=== PATIENT | male | born 1955 | race Caucasian/White ===

== ENCOUNTER 2016-09-26 20:41 | Emergency (ER) | payer MEDICAID ==
[~2016-09-26] VITALS: Ht 170.2 cm; Wt 74.7 kg
[~2016-09-26 20:41] MED LIST: GABA300C10 PO; METH10TA4 PO; QUET100T4 PO; SERT25TA PO
[2016-09-26] MEDS ORDERED: OMNIPAQUE 350 MG/ML, 100ML BOTTLE ONE (21:27)
[2016-09-26] MEDS ORDERED: ONDANSETRON 2MG/ML, 2ML IVPush ONE (21:30)
[2016-09-26] MEDS ORDERED: MORPHINE SULFATE 4 MG/ML, 1ML IVPush PRN (21:30)
[2016-09-26 21:52] LABS: HEMOGLOBIN 14.5 g/dL (13.7-18.0)
[2016-09-26] MEDS ORDERED: MORPHINE SULFATE 4 MG/ML, 1ML ONE (22:18)
[2016-09-26] MEDS ORDERED: ONDANSETRON 2MG/ML, 2ML ONE (22:18)
[2016-09-27] MEDS ORDERED: KETOROLAC 30 MG/1 ML IVPush ONE
[2016-09-27] MEDS ORDERED: KETOROLAC 30 MG/1 ML ONE (00:12)
[2016-09-27 00:23] VITALS: BP 119/78
== END 2016-09-27 00:25 | disposition home or self-care (01) ==
LOC: ED 09-27 00:24
DX: S20.219A Contusion of unspecified front wall of thorax, initial encounter (principal); Y09 Assault by unspecified means; Y93.89 Activity, other specified; Y92.89 Other specified places as the place of occurrence of the external cause; Y99.9 Unspecified external cause status
CPT/HCPCS: 36415; 71101; 74177; 85025; 93005; 96374; 96375; 99285; J1885; J2405; Q9967

== ENCOUNTER 2017-06-21 13:18 | Inpatient (IN) | payer MEDICAID ==
[~2017-06-21] VITALS: Ht 170.2 cm; Wt 77.2 kg
[2017-06-21] MEDS ORDERED: AMPICILLIN/SULBACTAM 3 GM in SODIUM CHLORIDE 0.9% 100 ML IV ONE (15:17)
[2017-06-21] MEDS ORDERED: HYDROmorphone 1 MG/ML, 1ML IVPush PRN (15:30)
[2017-06-21] MEDS ORDERED: SODIUM CHLORIDE 0.9% 1,000ML IVBOLUS ONE (15:30)
[2017-06-21] MEDS ORDERED: HYDROmorphone 2 MG/ML, 1ML ONE (15:42)
[2017-06-21 15:50] LABS: BASOPHILS # (AUTO) 0.02 x10^3/uL (0-0.1); BASOPHILS % (AUTO) 0 % (0-1); EOSINOPHILS # (AUTO) 0.03 x10^3/uL (0-0.4); EOSINOPHILS % (AUTO) 1 % (1-7); LYMPHOCYTES # (AUTO) 1.09 x10^3/uL (1-3.4); LYMPHOCYTES % (AUTO) 22 % (22-44); MD NO; MEAN CORPUSCULAR HEMOGLOBIN 31.6 pg (27.5-34.5); MEAN CORPUSCULAR HGB CONC 33.2 g/dL (33.2-36.2); MEAN CORPUSCULAR VOLUME 95.1 fL (81-97); MONOCYTES # (AUTO) 0.43 x10^3/uL (0.2-0.8); MONOCYTES % (AUTO) 8 % (2-9); NEUTROPHILS # (AUTO) 3.53 x10^3/uL (1.8-6.8); NEUTROPHILS % (AUTO) 69 % (42-75); PLATELET COUNT 180 x10^3/uL (130-400); RED BLOOD COUNT 4.33 x10^6/uL (4.38-5.82); RED CELL DISTRIBUTION WIDTH 14.4 % (9.4-14.8)
[2017-06-21 15:51] LABS: ALBUMIN 3.3 g/dL (3.4-5.0); ANION GAP 6 mmol/L (5-15); CALCIUM 8.2 mg/dL (8.5-10.1); CHLORIDE 105 mmol/L (98-107); CREATININE 0.97 mg/dL (0.7-1.3)
[2017-06-21] MEDS ORDERED: NS + 20MEQ KCL 1,000 ML IV SCH (17:10)
[2017-06-21 17:24] LABS: HCT (SEDRATE) 41.2 % (39.2-51.8)
[2017-06-21] MEDS ORDERED: ONDANSETRON 2MG/ML, 2ML IVPush PRN (17:30)
[2017-06-21] MEDS ORDERED: LABETALOL 5MG/ML, 20ML IVPush PRN (17:30)
[2017-06-21] MEDS ORDERED: VANCOMYCIN PER PHARMACY MC PRN (17:30)
[2017-06-21 18:13] LABS: INTERNATIONAL NORMALIZED RATIO 1.11 (0.93-1.1); PROTHROMBIN TIME 11.4 Seconds (9.6-11.5)
[2017-06-21 18:14] VITALS: BP 110/73
[2017-06-21] MEDS ORDERED: PHARMACOKINETIC CONSULTATION MC ONE (18:30)
[2017-06-21] MEDS ORDERED: VANCOMYCIN 1,600 MG in SODIUM CHLORIDE 0.9% 250 ML IV SCH (18:30)
[2017-06-21] MEDS ORDERED: PHARMACOKINETIC MONITORING MC PRN (18:30)
[2017-06-21 19:46] VITALS: BP 112/73
[2017-06-21] MEDS: QUETIAPINE 100MG TABLET PO SCH (20:52)
[2017-06-21] MEDS: KETOROLAC 30 MG/1 ML IVPush PRN (21:39)
[2017-06-21] MEDS: AMPICILLIN/SULBACTAM 3 GM in SODIUM CHLORIDE 0.9% 100 ML IV SCH (23:39)
[2017-06-22 00:30] VITALS: BP 114/69
[2017-06-22] MEDS: KETOROLAC 30 MG/1 ML IVPush PRN ×2 (03:33→20:23)
[2017-06-22 05:19] LABS: BASOPHILS # (AUTO) 0.02 x10^3/uL (0-0.1); BASOPHILS % (AUTO) 1 % (0-1); EOSINOPHILS # (AUTO) 0.05 x10^3/uL (0-0.4); EOSINOPHILS % (AUTO) 1 % (1-7); LYMPHOCYTES # (AUTO) 0.71 x10^3/uL (1-3.4); LYMPHOCYTES % (AUTO) 18 % (22-44); MD NO; MEAN CORPUSCULAR HEMOGLOBIN 32.4 pg (27.5-34.5); MEAN CORPUSCULAR VOLUME 95.2 fL (81-97); MEAN PLATELET VOLUME 7.8 fL (7.4-10.4); MONOCYTES % (AUTO) 8 % (2-9); NEUTROPHILS # (AUTO) 2.78 x10^3/uL (1.8-6.8); NEUTROPHILS % (AUTO) 72 % (42-75); PLATELET COUNT 159 x10^3/uL (130-400); RED BLOOD COUNT 3.92 x10^6/uL (4.38-5.82); RED CELL DISTRIBUTION WIDTH 14.6 % (9.4-14.8)
[2017-06-22 05:25] LABS: CHLORIDE 111 mmol/L (98-107)
[2017-06-22 05:40] LABS: ALANINE AMINOTRANSFERASE 17 U/L (12-78); ALBUMIN 2.6 g/dL (3.4-5.0); ALKALINE PHOSPHATASE 69 U/L (45-117); ANION GAP 6 mmol/L (5-15); BILIRUBIN,TOTAL 0.4 mg/dL (0.2-1.0); CALCIUM 7.8 mg/dL (8.5-10.1); CREATININE 0.78 mg/dL (0.7-1.3); TOTAL PROTEIN 5.8 g/dL (6.4-8.2)
[2017-06-22] MEDS: AMPICILLIN/SULBACTAM 3 GM in SODIUM CHLORIDE 0.9% 100 ML IV SCH ×4 (05:41→23:42)
[2017-06-22 06:35] VITALS: BP 146/78
[2017-06-22] MEDS ORDERED: METHYLPHENIDATE 10 MG TABLET ONE (07:34)
[2017-06-22] MEDS ORDERED: GADOBUTROL 10 MMOL/10 ML VIAL ONE (08:23)
[2017-06-22] MEDS: ACETAMINOPHEN 325 MG TABLET PO PRN ×2 (09:44→17:51)
[2017-06-22] MEDS: SERTRALINE 50MG TABLET PO SCH (09:44)
[2017-06-22] MEDS: GABAPENTIN 300 MG CAPSULE PO SCH (09:44)
[2017-06-22] MEDS: METHYLPHENIDATE 10 MG TABLET PO SCH (09:44)
[2017-06-22 10:26] LABS: RAPID INFLUENZA A POSITIVE (Negative); RAPID INFLUENZA B Negative (Negative)
[2017-06-22] MEDS: NS + 20MEQ KCL 1,000 ML IV SCH ×2 (10:49→23:41)
[2017-06-22] MEDS: OSELTAMIVIR 75 MG CAPSULE PO SCH ×2 (11:14→20:23)
[2017-06-22] MEDS: VANCOMYCIN 1,500 MG in SODIUM CHLORIDE 0.9% 250 ML IV SCH (12:46)
[2017-06-22 12:53] VITALS: BP 106/64
[2017-06-22 19:05] VITALS: BP 120/72
[2017-06-22] MEDS: QUETIAPINE 100MG TABLET PO SCH (20:22)
[2017-06-23] MEDS: VANCOMYCIN 1,500 MG in SODIUM CHLORIDE 0.9% 250 ML IV SCH (00:42)
[2017-06-23 04:21] VITALS: BP 139/78
[2017-06-23] MEDS: AMPICILLIN/SULBACTAM 3 GM in SODIUM CHLORIDE 0.9% 100 ML IV SCH (05:39)
[2017-06-23 06:41] VITALS: BP 136/81
[2017-06-23 07:32] LABS: ANION GAP 4 mmol/L (5-15); CALCIUM 7.6 mg/dL (8.5-10.1); CHLORIDE 112 mmol/L (98-107); CREATININE 0.83 mg/dL (0.7-1.3)
[2017-06-23] MEDS: GABAPENTIN 300 MG CAPSULE PO SCH (08:12)
[2017-06-23] MEDS: METHYLPHENIDATE 10 MG TABLET PO SCH (08:12)
[2017-06-23] MEDS: SERTRALINE 50MG TABLET PO SCH (08:12)
[2017-06-23] MEDS: OSELTAMIVIR 75 MG CAPSULE PO SCH (08:12)
== END 2017-06-23 10:05 | disposition left against medical advice (07) | DRG 194 ==
LOC: ED 16:32 → EDIP 16:45 → 3NW 17:50
PROVIDERS: ADMIT Family Medicine; ATTEND Family Medicine
DX: J10.1 Influenza due to other identified influenza virus with other respiratory manifestations (principal); E44.0 Moderate protein-calorie malnutrition; I11.9 Hypertensive heart disease without heart failure; L02.511 Cutaneous abscess of right hand; F17.210 Nicotine dependence, cigarettes, uncomplicated; L03.011 Cellulitis of right finger; M65.9 Synovitis and tenosynovitis, unspecified; Z66 Do not resuscitate; Z85.028 Personal history of other malignant neoplasm of stomach; R73.9 Hyperglycemia, unspecified; Z68.26 Body mass index [BMI] 26.0-26.9, adult; Z53.21 Procedure and treatment not carried out due to patient leaving prior to being seen by health care provider
CPT/HCPCS: 36415; 80048; 80053; 82040; 83605; 85025; 85610; 85651; 86141; 87040; 87400; 93005; 96365; 96366; 96375; A9585; J0295; J1170; J1885; J3370; J3480; J7030; J7050

== ENCOUNTER 2018-11-11 15:16 | Emergency (ER) | payer MEDICAID ==
[~2018-11-11] VITALS: Ht 170.2 cm; Wt 89.0 kg
[2018-11-11 15:32] VITALS: BP 147/79
--- NOTE | 2018-11-11 15:36 | NUR ---
PT. ARRIVES BY [facility] WITH C/O MGLF WHILE AT WORK. PT. STATES HE HIT HIS HEAD AND SHOULDER WITH THE FALL WELL DID LOSE CONSCIENCIOUSNESS. PT. HAS AN [facility] FROM [facility] ARTERIAL LINE. PT.'S IV WAS DCD, CATH TIP INTACT. PRESSURE HELD WITH HEMOSTASIS ACHIEVED. PT.'S PUPILS ARE ABIDA. NEUROASSESSMENT IS INTACT. PT. HAS 2 SMALL ABRASIONS TO HIS LEFT CHEEK AND LEFT EYE. PT. DENIES NECK OR BACK PAIN BUT DOES C/O CALDWELL PAIN. PT. HAS THE SIDERAILS UP X 2 AND WAS TAKEN TO RADIOLOGY.
[2018-11-11] MEDS ORDERED: CEFAZOLIN 1,000 MG ONE (16:53)
[2018-11-11] MEDS ORDERED: CEFAZOLIN PMX 1GM/50ML 50 ML IV ONE ×2 (17:00→18:00)
[2018-11-11] MEDS ORDERED: OXYcodone/APAP 5/325MG TABLET ONE (17:03)
--- NOTE | 2018-11-11 17:06 | NUR ---
Medicated per eMAR. No other needs.
[2018-11-11] MEDS ORDERED: CEFAZOLIN 1,000 MG IM ONE (17:30)
[2018-11-11] MEDS ORDERED: OXYcodone/APAP 5/325MG TABLET PO ONE (17:30)
--- NOTE | 2018-11-11 17:37 | NUR ---
Patient/Caregiver given discharge instructions and they have confirmed that they understand the instructions. Patient ambulatory with steady gait.
== END 2018-11-11 17:38 ==
LOC: ED 17:32
DX: S06.0X0A Concussion without loss of consciousness, initial encounter (principal); S02.32XA Fracture of orbital floor, left side, initial encounter for closed fracture; S02.40FA Zygomatic fracture, left side, initial encounter for closed fracture; S02.40DA Maxillary fracture, left side, initial encounter for closed fracture; R41.3 Other amnesia; M25.512 Pain in left shoulder; W18.30XA Fall on same level, unspecified, initial encounter; Y93.89 Activity, other specified; Y92.69 Other specified industrial and construction area as the place of occurrence of the external cause; Y99.0 Civilian activity done for income or pay
CPT/HCPCS: 70450; 70486; 72125; 73030; 96372; 99284; J0690

== ENCOUNTER 2018-11-24 10:24 | Day surgery (SDC) | payer OTHER ==
[~2018-11-24] VITALS: Ht 170.2 cm; Wt 72.5 kg
[2018-11-24] MEDS ORDERED: LACTATED RINGERS 1,000 ML IV SCH (10:59)
[2018-11-24] MEDS ORDERED: TRAZ150T62 PO (11:17)
[2018-11-24] MEDS ORDERED: SERT100T32 PO (11:17)
[2018-11-24 11:33] VITALS: BP 110/66
[2018-11-24] MEDS ORDERED: PRAZ1CAP PO (11:33)
[2018-11-24] MEDS ORDERED: BALANCED SALT OPHTH IRRIG SOLN 18ML ONE (12:20)
[2018-11-24] MEDS ORDERED: LIDOCAINE 1%-EPI 1:100K, 50ML ONE (12:20)
[2018-11-24] MEDS ORDERED: MUPIROCIN OINT 2%, 22GM ONE (12:20)
[2018-11-24] MEDS ORDERED: FENTANYL PF 250 MCG/5ML ONE (12:34)
[2018-11-24] MEDS ORDERED: MIDAZOLAM 1 MG/ML, 2ML ONE (12:34)
[2018-11-24] MEDS ORDERED: PROPOFOL 50 ML ONE (12:44)
[2018-11-24] MEDS ORDERED: CLINDAMYCIN 150 MG/ML, 6ML ONE (12:58)
[2018-11-24] MEDS ORDERED: PROPOFOL 10 MG/ML, 20ML ONE (13:47)
[2018-11-24] MEDS ORDERED: ONDANSETRON 2MG/ML, 2ML ONE (13:47)
[2018-11-24] MEDS ORDERED: GLYCOPYRROLATE 0.2MG/1ML, 5ML ONE (13:47)
[2018-11-24] MEDS ORDERED: ROCURONIUM 10MG/ML,5ML ONE (13:47)
[2018-11-24] MEDS ORDERED: DEXAMETHASONE 4 MG/ML, 1ML ONE (13:47)
[2018-11-24] MEDS ORDERED: NEOSTIGMINE 1 MG/ML, 10ML ONE (13:47)
[2018-11-24] MEDS ORDERED: SUCCINYLCHOLINE 20 MG/ML, 10ML ONE (13:47)
[2018-11-24] MEDS ORDERED: CEFAZOLIN 1,000 MG ONE (13:47)
[2018-11-24] MEDS ORDERED: LIDOCAINE-MPF 2% ,5ML ONE (13:48)
[2018-11-24] MEDS ORDERED: ACETAMINOPHEN 325 MG TABLET PO PRN (14:00)
[2018-11-24] MEDS ORDERED: ALBUTEROL/IPRATROPIUM 2.5MG/0.5MG, 3 ML NPPB PRN (14:00)
[2018-11-24] MEDS ORDERED: FENTANYL PF 100 MCG/2ML IV PRN (14:00)
[2018-11-24] MEDS ORDERED: ONDANSETRON 2MG/ML, 2ML IV PRN (14:00)
[2018-11-24] MEDS ORDERED: LORazepam 2 MG/ML, 1ML IVPush PRN (14:00)
[2018-11-24] MEDS ORDERED: ONDANSETRON ODT 8 MG PO PRN (14:00)
[2018-11-24] MEDS ORDERED: PROMETHAZINE 25 MG/ML, 1ML IV PRN (14:00)
[2018-11-24] MEDS ORDERED: DIAZEPAM 5 MG/ML, 2ML IVPush PRN (14:00)
[2018-11-24] MEDS ORDERED: PROMETHAZINE 25 MG SUPP PR PRN (14:00)
[2018-11-24] MEDS ORDERED: MEPERIDINE/PF 25MG/0.5ML IVPush PRN (14:00)
[2018-11-24] MEDS ORDERED: OXYcodone 5 MG/5 ML ORAL.SOL UDC PO PRN (14:00)
[2018-11-24] MEDS ORDERED: HYDROmorphone 2 MG/ML, 1ML IVPush PRN ×2 (14:00→19:00)
[2018-11-24] MEDS ORDERED: OXYcodone 5 MG/5 ML ORAL.SOL UDC ONE (14:23)
[2018-11-24] MEDS ORDERED: FENTANYL PF 100 MCG/2ML ONE (14:23)
[2018-11-24] MEDS ORDERED: OXYcodone IR 5MG TABLET ONE (15:59)
[2018-11-24] MEDS ORDERED: HYDROmorphone 2 MG/ML, 1ML ONE (18:34)
[2018-11-24] MEDS ORDERED: HYDROmorphone 1 MG/ML, 1ML INJ IV ONE (19:00)
[2018-11-25] MEDS ORDERED: OXYcodone IR 5MG TABLET PO PRN (12:00)
== END 2018-11-24 19:15 | disposition home or self-care (01) ==
LOC: OUT 10:24
PROVIDERS: ATTEND Otolaryngology Facial Plastic Surgery
DX: S02.40BA Malar fracture, left side, initial encounter for closed fracture (principal); F43.10 Post-traumatic stress disorder, unspecified; J44.9 Chronic obstructive pulmonary disease, unspecified; Z85.028 Personal history of other malignant neoplasm of stomach; Z86.19 Personal history of other infectious and parasitic diseases; W01.0XXA Fall on same level from slipping, tripping and stumbling without subsequent striking against object, initial encounter; Y93.89 Activity, other specified; Y92.89 Other specified places as the place of occurrence of the external cause; Y99.8 Other external cause status
CPT/HCPCS: 21365; 93005; C1713; J0330; J0690; J1100; J1170; J2250; J2405; J2704; J2710; J3010; J7120

== ENCOUNTER 2018-11-25 12:11 | Emergency (ER) | payer OTHER ==
[~2018-11-25] VITALS: Ht 170.2 cm; Wt 76.8 kg
[~2018-11-25 12:11] MED LIST changes: +PRAZ1CAP PO; +SERT100T32 PO; +TRAZ150T62 PO
[2018-11-25 12:16] VITALS: BP 144/73
[2018-11-25] MEDS ORDERED: METHOCARBAMOL 750 MG TABLET PO ONE (13:30)
[2018-11-25] MEDS ORDERED: KETOROLAC 30 MG/1 ML IM ONE (13:30)
[2018-11-25] MEDS ORDERED: KETOROLAC 30 MG/1 ML ONE (13:40)
[2018-11-25] MEDS ORDERED: METHOCARBAMOL 750 MG TABLET ONE (13:40)
== END 2018-11-25 15:06 | disposition home or self-care (01) ==
LOC: ED 15:00
DX: M62.838 Other muscle spasm (principal); Z85.028 Personal history of other malignant neoplasm of stomach
CPT/HCPCS: 73030; 96372; 99283; J1885

== ENCOUNTER 2018-12-01 13:45 | Emergency (ER) | payer OTHER ==
[~2018-12-01] VITALS: Ht 170.2 cm; Wt 74.9 kg
[2018-12-01 13:54] VITALS: BP 164/91
--- NOTE | 2018-12-01 15:00 | NUR ---
PT REPORTS THAT HE WAS SENT HER BY DR. LIZARRAGA FOR EVALUATION OF INCFECTION. PT REPORTS HE FEELS FINE BUT HAS NOTED SOME SWELLING.
--- NOTE | 2018-12-01 15:21 | NUR ---
Patient/Caregiver given discharge instructions and they have confirmed that they understand the instructions. Patient ambulatory with steady gait.
== END 2018-12-01 19:28 | disposition home or self-care (01) ==
LOC: ED 15:17
DX: R51 Headache (principal); S02.40FA Zygomatic fracture, left side, initial encounter for closed fracture; F17.200 Nicotine dependence, unspecified, uncomplicated; X58.XXXA Exposure to other specified factors, initial encounter; Y93.89 Activity, other specified; Y92.89 Other specified places as the place of occurrence of the external cause; Y99.8 Other external cause status
CPT/HCPCS: 99283

== ENCOUNTER 2019-04-10 08:56 | Emergency (ER) | payer MEDICAID, OTHER ==
[~2019-04-10] VITALS: Ht 170.2 cm; Wt 79.0 kg
--- NOTE | 2019-04-10 09:42 | NUR ---
pt to room from lobby
[2019-04-10] MEDS ORDERED: methylPREDNISolone SOD SUCC 125 MG/2 ML IV ONE (10:00)
--- NOTE | 2019-04-10 10:55 | NUR ---
REPORT FROM ELEANOR SRIVASTAVA. ASSUMING PT CARE AT THIS TIME
[2019-04-10] MEDS ORDERED: methylPREDNISolone SOD SUCC 125 MG/2 ML ONE (11:08)
--- NOTE | 2019-04-10 11:12 | NUR ---
AT BEDSIDE TO REASSESS PT
[2019-04-10 11:15] LABS: BASOPHILS # (AUTO) 0.07 x10^3/uL (0-0.1); BASOPHILS % (AUTO) 1 % (0-1); EOSINOPHILS # (AUTO) 0.15 x10^3/uL (0-0.4); EOSINOPHILS % (AUTO) 2 % (1-7); LYMPHOCYTES # (AUTO) 2.33 x10^3/uL (1-3.4); LYMPHOCYTES % (AUTO) 26 % (22-44); MD NO; MEAN CORPUSCULAR HEMOGLOBIN 33.5 pg (27.5-34.5); MEAN CORPUSCULAR HGB CONC 33.3 g/dL (33.2-36.2); MEAN CORPUSCULAR VOLUME 100.8 fL (81-97); MEAN PLATELET VOLUME 8.1 fL (7.4-10.4); MONOCYTES # (AUTO) 0.41 x10^3/uL (0.2-0.8); MONOCYTES % (AUTO) 5 % (2-9); NEUTROPHILS # (AUTO) 6.07 x10^3/uL (1.8-6.8); NEUTROPHILS % (AUTO) 67 % (42-75); PLATELET COUNT 213 x10^3/uL (130-400); RED BLOOD COUNT 4.79 x10^6/uL (4.38-5.82); RED CELL DISTRIBUTION WIDTH 13.9 % (9.4-14.8)
[2019-04-10 11:18] LABS: CHLORIDE 107 mmol/L (98-107)
[2019-04-10 11:30] LABS: ALANINE AMINOTRANSFERASE 18 U/L (12-78); ALBUMIN 3.6 g/dL (3.4-5.0); ANION GAP 5 mmol/L (5-15); CALCIUM 8.9 mg/dL (8.5-10.1); CREATININE 1.17 mg/dL (0.7-1.3)
[2019-04-10 11:33] LABS: ALKALINE PHOSPHATASE 95 U/L (45-117); BILIRUBIN,TOTAL 0.8 mg/dL (0.2-1.0); TOTAL PROTEIN 7.2 g/dL (6.4-8.2); TROPONIN I < 0.015 ng/mL (0.000-0.045)
--- NOTE | 2019-04-10 11:46 | NUR ---
ALL RESULTS BACK AT THIS TIME, CHART UP FOR RECHECK. PT TO BE DCd HOME
[2019-04-10 11:49] VITALS: BP 127/69
== END 2019-04-10 12:29 ==
LOC: ED 12:04
DX: R05 Cough (principal); F17.200 Nicotine dependence, unspecified, uncomplicated
CPT/HCPCS: 36415; 71045; 80053; 83880; 84484; 85025; 93005; 96374; 99284; J2930

== ENCOUNTER 2019-12-06 19:44 | Observation (INO) | payer MEDICARE, MEDICAID ==
[~2019-12-06] VITALS: Ht 170.2 cm; Wt 78.0 kg
--- NOTE | 2019-12-06 20:22 | NUR ---
Shanique Cash [phone]
[2019-12-06] MEDS: HYDROmorphone 2 MG/ML, 1ML IVPush PRN ×2 (20:30→20:58)
[2019-12-06] MEDS ORDERED: SODIUM CHLORIDE FLUSH 10ML SYR IVF ONE (20:30)
--- NOTE | 2019-12-06 20:42 | NUR ---
Pt arrives to ed with abd pain and distention x 1 day. Pt ate a mix of food and reprots he has pooped today and has not thrown up. Pt reports that he had stomach cancer and is concerned that his tumor may have ruptrued that was stable. Pt reports that the bloating of his abdomen is making it hard for him to breathe. Pt connected to monitors and call light in reach.
[2019-12-06] MEDS ORDERED: HYDROmorphone 2 MG/ML, 1ML ONE (20:44)
[2019-12-06 20:56] LABS: BASOPHILS # (AUTO) 0.04 x10^3/uL (0-0.1); BASOPHILS % (AUTO) 1 % (0-1); EOSINOPHILS # (AUTO) 0.04 x10^3/uL (0-0.4); EOSINOPHILS % (AUTO) 1 % (1-7); LYMPHOCYTES # (AUTO) 1.98 x10^3/uL (1-3.4); LYMPHOCYTES % (AUTO) 25 % (22-44); MD NO; MEAN CORPUSCULAR HEMOGLOBIN 33.4 pg (27.5-34.5); MEAN CORPUSCULAR HGB CONC 33.7 g/dL (33.2-36.2); MEAN CORPUSCULAR VOLUME 99.1 fL (81-97); MEAN PLATELET VOLUME 7.9 fL (7.4-10.4); MONOCYTES # (AUTO) 0.31 x10^3/uL (0.2-0.8); MONOCYTES % (AUTO) 4 % (2-9); NEUTROPHILS # (AUTO) 5.54 x10^3/uL (1.8-6.8); NEUTROPHILS % (AUTO) 70 % (42-75); PLATELET COUNT 188 x10^3/uL (130-400); RED BLOOD COUNT 4.68 x10^6/uL (4.38-5.82); RED CELL DISTRIBUTION WIDTH 13.6 % (9.4-14.8)
[2019-12-06 21:02] LABS: ALANINE AMINOTRANSFERASE 17 U/L (12-78); ALBUMIN 3.7 g/dL (3.4-5.0); ANION GAP 6 mmol/L (5-15); CALCIUM 8.6 mg/dL (8.5-10.1); CHLORIDE 108 mmol/L (98-107); CREATININE 1.13 mg/dL (0.7-1.3)
[2019-12-06 21:05] LABS: ALKALINE PHOSPHATASE 70 U/L (45-117); BILIRUBIN,TOTAL 0.6 mg/dL (0.2-1.0); TOTAL PROTEIN 7.3 g/dL (6.4-8.2)
--- NOTE | 2019-12-06 21:29 | NUR ---
Pt back from CT
[2019-12-06] MEDS ORDERED: OMNIPAQUE 350 MG/ML, 100ML BOTTLE ONE (21:54)
--- NOTE | 2019-12-06 22:24 | NUR ---
Pt has small Bowel obstruction. Pt NPO at this time.
[2019-12-06] MEDS ORDERED: ONDANSETRON 2MG/ML, 2ML IVPush PRN (23:00)
[2019-12-06] MEDS ORDERED: morphine SULFATE 10 MG/ML, 1ML IVPush PRN (23:00)
[2019-12-06] MEDS ORDERED: PROMETHAZINE 25 MG/ML, 1ML IM PRN (23:00)
[2019-12-06] MEDS ORDERED: LABETALOL 5MG/ML, 20ML IVPush PRN (23:00)
[2019-12-06] MEDS ORDERED: NICOTINE 14MG/24 HR PATCH.TD24 TD SCH (23:00)
[2019-12-06] MEDS ORDERED: PRAZOSIN 1 MG CAPSULE PO SCH (23:00)
[2019-12-06] MEDS: LACTATED RINGERS 1,000 ML IV SCH (23:00)
[2019-12-06] MEDS ORDERED: hydrALAzine 20 MG/ML, 1ML IVPush PRN (23:00)
[2019-12-06] MEDS ORDERED: TRAZODONE 150MG TABLET PO SCH (23:00)
[2019-12-06] MEDS ORDERED: TRAZODONE 50MG TABLET ONE (23:14)
[2019-12-06] MEDS ORDERED: TRAZODONE 100MG TABLET ONE (23:15)
[2019-12-06] MEDS ORDERED: NICOTINE 14MG/24 HR PATCH.TD24 ONE (23:15)
--- NOTE | 2019-12-06 23:28 | NUR ---
Report called to jere SRIVASTAVA. Pt medicated by emar and only sips of water for po pills.
[2019-12-06 23:40] VITALS: BP 124/81
[2019-12-07] MEDS ORDERED: OMEPRAZOLE 20 MG CAPSULE.DR PO SCH (07:30)
[2019-12-07 08:11] VITALS: BP 118/79
[2019-12-07] MEDS: LACTATED RINGERS 1,000 ML IV SCH ×2 (08:15→15:00)
[2019-12-07 08:52] LABS: MICROSCOPIC NOT IND
[2019-12-07] MEDS ORDERED: SERTRALINE 100MG TABLET PO SCH (09:00)
[2019-12-07 09:03] LABS: OCCULT BLOOD NEGATIVE (NEGATIVE)
[2019-12-07 09:10] LABS: AMPHETAMINE SCREEN, URINE Positive (Negative); BARBITURATE SCREEN, URINE Negative (Negative); BENZODIAZEPINE SCREEN, URINE Negative (Negative); CANNABINOID SCREEN, URINE Positive (Negative); COCAINE SCREEN, URINE Negative (Negative)
[2019-12-07 09:14] LABS: METHADONE SCREEN, URINE Negative (Negative); OPIATE SCREEN, URINE Positive (Negative)
[2019-12-07 13:06] VITALS: BP 152/89
[2019-12-07 15:08] LABS: BASOPHILS # (AUTO) 0.02 x10^3/uL (0-0.1); BASOPHILS % (AUTO) 0 % (0-1); EOSINOPHILS # (AUTO) 0.09 x10^3/uL (0-0.4); EOSINOPHILS % (AUTO) 1 % (1-7); LYMPHOCYTES # (AUTO) 1.51 x10^3/uL (1-3.4); LYMPHOCYTES % (AUTO) 23 % (22-44); MD NO; MEAN CORPUSCULAR HEMOGLOBIN 34.1 pg (27.5-34.5); MEAN CORPUSCULAR HGB CONC 34.3 g/dL (33.2-36.2); MEAN CORPUSCULAR VOLUME 99.3 fL (81-97); MEAN PLATELET VOLUME 8.1 fL (7.4-10.4); MONOCYTES # (AUTO) 0.31 x10^3/uL (0.2-0.8); MONOCYTES % (AUTO) 5 % (2-9); NEUTROPHILS # (AUTO) 4.74 x10^3/uL (1.8-6.8); NEUTROPHILS % (AUTO) 71 % (42-75); PLATELET COUNT 161 x10^3/uL (130-400); RED BLOOD COUNT 4.78 x10^6/uL (4.38-5.82); RED CELL DISTRIBUTION WIDTH 13.6 % (9.4-14.8)
[2019-12-07 15:14] LABS: ANION GAP 6 mmol/L (5-15); CHLORIDE 108 mmol/L (98-107); CREATININE 1.01 mg/dL (0.7-1.3)
[2019-12-07] MEDS ORDERED: ONDA4TAB7 PO (15:45)
== END 2019-12-07 17:19 | disposition home or self-care (01) ==
LOC: ED 21:52 → INTOOBSV 21:58 → EDIP 21:58 → ED 22:07 → 3N 23:32
PROVIDERS: ADMIT Family Medicine; ATTEND Hospitalist
DX: K56.609 Unspecified intestinal obstruction, unspecified as to partial versus complete obstruction (principal); K80.20 Calculus of gallbladder without cholecystitis without obstruction; R11.2 Nausea with vomiting, unspecified; I10 Essential (primary) hypertension; F90.9 Attention-deficit hyperactivity disorder, unspecified type; F32.9 Major depressive disorder, single episode, unspecified; F43.10 Post-traumatic stress disorder, unspecified; F10.11 Alcohol abuse, in remission; F17.200 Nicotine dependence, unspecified, uncomplicated; D75.89 Other specified diseases of blood and blood-forming organs; Z86.19 Personal history of other infectious and parasitic diseases; Z85.028 Personal history of other malignant neoplasm of stomach; Z79.899 Other long term (current) drug therapy; Z92.3 Personal history of irradiation
CPT/HCPCS: 36415; 74177; 80048; 80053; 80307; 81003; 82272; 82607; 83605; 83690; 84443; 85025; 93005; 96361; 96372; 96374; 99285; G0378; J1170; J2550; J7120; Q9967

== ENCOUNTER 2020-03-03 19:40 | Emergency (ER) | payer MEDICARE, MEDICAID ==
[~2020-03-03] VITALS: Ht 170.2 cm; Wt 81.1 kg
[~2020-03-03 19:40] MED LIST changes: +ONDA4TAB7 PO
--- NOTE | 2020-03-03 19:52 | NUR ---
EMERGENCY CONTACT [facility], SPOUSE [phone]
[2020-03-03] MEDS ORDERED: MAALOX/HYOSCYAMINE/LIDOCAINE 45 ML BTL ONE (20:21)
[2020-03-03] MEDS ORDERED: MAALOX/HYOSCYAMINE/LIDOCAINE 45 ML BTL PO ONE (20:30)
--- NOTE | 2020-03-03 21:11 | NUR ---
blood sent to lab at this time
[2020-03-03 21:23] LABS: BASOPHILS # (AUTO) 0.03 x10^3/uL (0-0.1); BASOPHILS % (AUTO) 0 % (0-1); EOSINOPHILS # (AUTO) 0.02 x10^3/uL (0-0.4); EOSINOPHILS % (AUTO) 0 % (1-7); LYMPHOCYTES # (AUTO) 1.59 x10^3/uL (1-3.4); LYMPHOCYTES % (AUTO) 17 % (22-44); MD NO; MONOCYTES # (AUTO) 0.33 x10^3/uL (0.2-0.8); MONOCYTES % (AUTO) 4 % (2-9); NEUTROPHILS # (AUTO) 7.59 x10^3/uL (1.8-6.8); NEUTROPHILS % (AUTO) 79 % (42-75); PLATELET COUNT 185 x10^3/uL (130-400); RED BLOOD COUNT 4.71 x10^6/uL (4.38-5.82); RED CELL DISTRIBUTION WIDTH 13.5 % (9.4-14.8)
[2020-03-03 21:30] LABS: ALANINE AMINOTRANSFERASE 21 U/L (12-78); ALBUMIN 3.7 g/dL (3.4-5.0); ANION GAP 8 mmol/L (5-15); CHLORIDE 107 mmol/L (98-107); CREATININE 1.11 mg/dL (0.7-1.3)
[2020-03-03 21:34] LABS: ALKALINE PHOSPHATASE 67 U/L (45-117); BILIRUBIN,TOTAL 0.5 mg/dL (0.2-1.0); TOTAL PROTEIN 7.3 g/dL (6.4-8.2); TROPONIN I < 0.015 ng/mL (0.000-0.045)
[2020-03-03] MEDS ORDERED: LORazepam 1MG TABLET ONE (21:57)
--- NOTE | 2020-03-03 21:58 | NUR ---
SPOKE WITH DR MORATAYA ABOUT PT NOT HAVING IV ACCESS AT THIS TIME DUE TO DIFFICULT POKE. NEW VERBAL ORDER AT THIS TIME FOR PO ATIVAN
[2020-03-03] MEDS ORDERED: LORazepam 2 MG/ML, 1ML IVPush ONE (22:00)
[2020-03-03] MEDS ORDERED: SODIUM CHLORIDE 0.9%, 500ML IVBOLUS ONE (22:00)
--- NOTE | 2020-03-03 22:08 | NUR ---
PT MEDICATED PER DR MORATAYA 1MG ATIVAN PO AT THIS TIME
--- NOTE | 2020-03-03 22:39 | NUR ---
LAB CALLED TO FOLLOW UP ON DDIMER STS WILL CALL BACK AFTER THEY FIND IT
--- NOTE | 2020-03-03 22:57 | NUR ---
LAB CALLED TO INFORM RN OF FOUND SAMPLE IN EXTRA BIN, SAMPLE TO BE RUN NOW
--- NOTE | 2020-03-04 00:29 | NUR ---
PIV STARTED, CT CALLED, YVON GODINEZ
--- NOTE | 2020-03-04 00:31 | NUR ---
PT TO CT
--- NOTE | 2020-03-04 01:01 | NUR ---
PER CT, IV DID NOT TOLERATED CONTRAST, DR MORATAYA UPDATED TO DO CT NO CONTRAST
--- NOTE | 2020-03-04 01:47 | NUR ---
PT RESTING ON PILI GODINEZ
[2020-03-04 02:29] VITALS: BP 128/71
== END 2020-03-04 02:31 | disposition home or self-care (01) ==
LOC: ED 21:57
DX: R06.02 Shortness of breath (principal); R42 Dizziness and giddiness; R00.0 Tachycardia, unspecified; F17.210 Nicotine dependence, cigarettes, uncomplicated; Z85.028 Personal history of other malignant neoplasm of stomach
CPT/HCPCS: 36415; 71045; 74021; 74176; 80053; 83690; 83880; 84484; 85025; 85379; 93005; 99285; 99406

== ENCOUNTER 2021-02-21 12:08 | Outpatient (CLI) | payer MEDICAID, MEDICARE ==
[2021-02-21] MEDS ORDERED: AMPH20TA2 PO (12:42)
== END 2021-02-21 23:59 | disposition home or self-care (01) ==
LOC: STAR 12:08
PROVIDERS: ATTEND Internal Medicine Gastroenterology
DX: Z01.812 Encounter for preprocedural laboratory examination (principal); Z20.822 Contact with and (suspected) exposure to COVID-19; I25.2 Old myocardial infarction; R13.10 Dysphagia, unspecified
CPT/HCPCS: 93005; U0003; U0005

== ENCOUNTER 2021-02-28 08:00 | Day surgery (SDC) | payer MEDICAID, MEDICARE ==
[~2021-02-28] VITALS: Ht 170.2 cm; Wt 80.9 kg
[~2021-02-28 08:00] MED LIST changes: +AMPH20TA2 PO
[2021-02-28 08:36] VITALS: BP 143/92
[2021-02-28] MEDS ORDERED: FLUT1BLS3 IH (08:44)
[2021-02-28] MEDS ORDERED: CHLORHEXIDINE 15 ML UDC ONE (08:46)
[2021-02-28] MEDS ORDERED: LACTATED RINGERS 1,000 ML IV SCH (09:00)
[2021-02-28] MEDS ORDERED: CHLORHEXIDINE 15 ML UDC PO ONE (09:00)
[2021-02-28] MEDS ORDERED: LIDOCAINE-MPF 2% ,5ML ONE (09:32)
[2021-02-28] MEDS ORDERED: PROPOFOL 10 MG/ML, 20ML ONE (09:32)
== END 2021-02-28 11:30 | disposition home or self-care (01) ==
LOC: OUT 08:00
PROVIDERS: ATTEND Internal Medicine Gastroenterology
DX: Z12.11 Encounter for screening for malignant neoplasm of colon (principal); K63.5 Polyp of colon; R13.10 Dysphagia, unspecified; K22.2 Esophageal obstruction; K64.0 First degree hemorrhoids; K29.50 Unspecified chronic gastritis without bleeding; J44.9 Chronic obstructive pulmonary disease, unspecified; Z79.899 Other long term (current) drug therapy
CPT/HCPCS: 43239; 43248; 45380; 88305; J2704; J7120